=== PATIENT | female | born 1985 | race African-American/Black ===

== ENCOUNTER 2019-04-16 05:04 | Inpatient (IN) | payer OTHER ==
[~2019-04-16] VITALS: Ht 162.6 cm; Wt 72.3 kg
[2019-04-16] VITALS (9 sets, daily range): BP systolic 117–152; BP diastolic 74–105
[2019-04-16 06:23] LABS: HEMATOCRIT 38.7 % (36.0-47.0); HEMOGLOBIN 13.5 g/dl (12.0-15.5); MEAN CORPUSCULAR HEMOGLOBIN 34.1 pg (27.0-33.0); MEAN CORPUSCULAR HGB CONC 34.9 g/dl (32.0-36.5); MEAN CORPUSCULAR VOLUME 97.7 fl (80.0-96.0); PLATELET COUNT, AUTOMATED 182 10^3/uL (150-450); RED BLOOD COUNT 3.96 10^6/uL (4.00-5.40); WHITE BLOOD COUNT 9.7 10^3/uL (4.0-10.0)
[2019-04-16] MEDS ORDERED: OXYTOCIN 30 UNITS IN 0.9% NaCl 500ML IV BAG (J2590) As Ordered ONE (06:26)
[2019-04-16] MEDS ORDERED: LR 1,000 ML IV SCH ×2 (06:40→07:16)
[2019-04-16 06:51] LABS: CORD GAS ABE V -4.6; CORD GAS O2 SAT V 74.4 %; CORD GAS PCO2 V 40.9 mmHg; CORD GAS PH V 7.329 UNITS; CORD GAS PO2 V 34.9 mmHg; CORD GAS SBC V 20.2 MEQ/L; CORD GAS TCO2 V 22.3 MEQ/L
[2019-04-16] MEDS ORDERED: OXYTOCIN DRIP 30 UNITS in APPROPRIATE DILUENT 1 EA IV SCH (07:18)
[2019-04-16] MEDS ORDERED: LIDOCAINE 1% MDV 20ML VIAL INFIL ONE (07:30)
[2019-04-16] MEDS ORDERED: MEASLES,MUMPS,RUBELLA VACCINE INJ (MMR-II) (90707) SC SCH (07:30)
[2019-04-16] MEDS ORDERED: RHOGAM 300 MCG (1500 IU) INJ (J2790) IM SCH (07:30)
[2019-04-16] MEDS ORDERED: DIBUCAINE 1% OINTMENT 30GM TOP PRN (07:30)
--- NOTE | 2019-04-16 07:41 | HPEPDOC ---
Obstetrical History & Physical General Date of Admission Apr 16, 2019 at 05:41 History of Present Illness 32 y/o at 41+0 who came in earlier this AM with painful reg ctx's. RN check was 5 cm. She progressed rapidly and I was called from the OR to assist with delivery due to HR decels. See del note. Preg c/b known 4 cm fibroid. Chief Complaint: Contractions, term Information Provided By: Patient Care Care: Good Care Dating Final EDC by: LMP, 1st trimester ([place]) Past Medical History Past Obstetrical History : Type of Delivery: Spontaneous Vaginal Del. (2010 3000 gm, uncomplicated) LINE CLEANER History: No pertinent history Past Medical History Medical History denies Surgical History: Denies/None Family History Significant Family History: No pertinent family hx Social History Marital Status: Family situation: Spouse/partner home Psychosocial History: No pertinent psych hx * Smoker: non-smoker Alcohol: Denies Drugs: denies Abuse Violence Screening Have you been hit/kicked/slapp: No Have you been sexually assault: No Imunizations Tdap status: current Influenza Status: current Physical Examination Physical Examination GENERAL: Alert and oriented times three ABDOMEN: Gravid and non-tender to touch. FETUS: Is vertex (VTX) by sterile vaginal examination (SVE), C/C/BBOW/+1 station EXTREMITIES: No edema. Laboratory Data [facility] Laboratory Tests 2 04/16/19 05:45: Serology Scanned Report Hepatitis B Testing 04/16/19 06:07: Nucleated Red Blood Cells % (auto) 0.0 04/16/19 06:47: Cord Venous Blood pH 7.329, Cord Venous Blood PCO2 40.9, Cord Venous Blood PO2 34.9, Cord Venous Blood HCO3 21.0, Cord Venous Blood Total CO2 22.3, Cord Venous Base Excess (Actual) -4.6, Cord Venous Base Excess (Standard) 20.2, Cord Venous Blood Oxygen Saturation 74.4 CBC/BMP Laboratory Tests 04/16/19 06:07 Red Blood Count 3.96 L, Mean Corpuscular Volume 97.7 H, Mean Corpuscular Hemoglobin 34.1 H, Mean Corpuscular Hemoglobin Concent 34.9, Red Cell Distribution Width 12.6 Urine Culture: No Growth Pertinent Laboratoy Data Blood Type: O+ RBC Antibody Screen: Negative HIV: Negative Hepatitis B: Negative Hepatitis C: Unknown Rapid Plasma Reagin: Nonreactive Rubella: Immune Varicella: Nonreactive (nonimmune) Chlamydia/Gonorrhea: Negative Group B Streptococcus: Negative Quad Screen Test: Unknown Cystic Fibrosis: Negative Anatomy Ultrasound Placenta Location: Posterior Normal Anatomy: Yes Placenta Previa: No Assessment Variability: Moderate Accelerations: Positive Decelerations: Late, Variable, Recurrent (when I was called to room, see del note) Tocometer Contractions: Yes Frequency: regular Duration: greater than 60 seconds Strength: palpated as strong Assessment/Plan Assessment Active labor Plan Admit and orient. Java Tech Lead and consent. Diet: clears Group B Streptococcus (GBS) neg Labs and intravenous (IV) per unit protocol. Counseled on Pitocin and induction of labor (IOL). Lactated Ringers (LR): Bolus 1000 mL, then at 125 mL/hr. Anticipate normal spontaneous delivery () C-S as appropriate. Sessions MD CASEY,TRENT Fay MD Apr 16, 2019 07:41
--- NOTE | 2019-04-16 08:05 | DNPDOC ---
[facility] Delivery Note Delivery Note DATE OF DELIVERY: [id number] PREDELIVERY DIAGNOSIS: 41 0/7 weeks' gestation and labor. POST DELIVERY DIAGNOSIS: Delivered. PROCEDURE: Outlet vacuum vaginal delivery PAPER GOODS MACHINE OPERATOR: Dr. Putnam ANESTHESIA: natural ESTIMATED BLOOD LOSS: 300 mL. FINDINGS: 7 pound 8 ounce male infant, Score 9/9 DELIVERY SUMMARY: Several lates when I entered the room, C/C/+1/BBOW, AROM done with thin mec noted. Pushed very well but persistent bradycardia developed 80- 90's with pushing. Mod alec present. Pushed to +3-+4 and due to FHR I obtained verbal consent for an outlet vacuum. D/W pt risks of larger lac, hematoma/bruising to the vtx. Placed mid sagitally 1-2 cm from post fontanelle and 2 sets of pulls with 2 ctx's with excellent descent noted with each pull/push. Removed with complete , vtx del'd JUNIOR to LOT. 70 s shoulder dystocia (head out right ant shoulder not coming to shoulder/body out) then occurred that responded to Adonis, Suprapubic, ML Episiotomy in that order. Vigorous then del'd/placed on abdomen. Cord clamped X2 and cut by FOB. Cord blood, venous cord gas: pH 7.3, BE -4. Placenta intact, fundus firm with pit going 999. Stellate extension of the ML epis, equivalent of a second degr lac down to the anal verge but the rectal capsule was intact. 1% lidocaine bath throughout. 3-0 vicyrl used to repair the epis/lac in standard fashion, good cosmesis/hemostasis. Uncomplicated. Sessions TRENT COLLIER MD Apr 16, 2019 08:05
[2019-04-16] MEDS: PRENATAL VITAMINS CHEWABLE TABLET PO SCH (09:33)
[2019-04-16] MEDS: DOCUSATE SODIUM 100 MG CAP PO SCH ×2 (09:33→19:32)
[2019-04-16] MEDS: ACETAMINOPHEN TAB 650MG DOSE (2X325MG) PO PRN ×2 (09:34→18:28)
[2019-04-16] MEDS: IBUPROFEN 800 MG TAB PO PRN ×2 (11:38→22:04)
[2019-04-17 06:24] VITALS: BP 128/59
[2019-04-17] MEDS ORDERED: PRENCHW PO (06:43)
[2019-04-17] MEDS ORDERED: DIBU10OI TOP (06:43)
[2019-04-17] MEDS ORDERED: COLA100C5 PO (06:43)
[2019-04-17] MEDS ORDERED: IBUP80TA PO (06:43)
[2019-04-17] MEDS: DOCUSATE SODIUM 100 MG CAP PO SCH (09:43)
[2019-04-17] MEDS: PRENATAL VITAMINS CHEWABLE TABLET PO SCH (09:43)
--- NOTE | 2019-04-17 19:09 | DSES ---
DATE OF ADMISSION: 04/16/2019 DATE OF DISCHARGE: 04/17/2019 This lady is a 33-year-old 3, now para 2, admitted at 41 weeks in active labor. Precipitously became fully dilated, delivered by low vacuum, a live- male infant, 7 pounds 8 ounces, scores of 9 and 9 at one and five minutes, respectively. Arterial pH was 7.32, base excess -4.6. Admitting hemoglobin was 13.5, hematocrit 38.7, and platelets are 182. On discharge, we discussed phlebitis, cystitis, mastitis, metritis, cellulitis, diet, exercise, pain management, perineal, breast, and wound care. The patient's blood pressure on discharge 128/59, respirations 18, pulse 88, temperature 98.1. The rest examination unremarkable. Normocephalic, atraumatic. Neck: Full range of motion. Pupils equal and reactive to light. Distal pulses symmetric. No evidence of deep vein thrombosis (DVT), pulmonary embolism (PE), or superficial phlebitis. Chest is clear bilaterally to bases. No wheezes or rhonchi. No costovertebral angle (CVA) tenderness . Abdomen: Soft. Uterus 2 below. Four-quadrant bowel sounds are noted. Perineum is healing and dry. She did have a stellate tear, which was repaired in usual fashion. In summary, we have a late-term gestation, delivered a live- male . DISCHARGE: Followup in the office in 6 weeks' time. Medications were dispensed at delivery. All questions were answered. The patient is planning to delay circumcision of her male infant for 1 month.
== END 2019-04-17 10:50 | disposition home or self-care (01) | DRG 807 ==
LOC: M LDO 05:04 → M LDI 05:41 → M OBS 10:00
PROVIDERS: ADMIT Obstetrics & Gynecology; ATTEND Obstetrics & Gynecology
PROC: 10D07Z6 Extraction of Products of Conception, Vacuum, Via Natural or Artificial Opening (ICD-10-PCS; principal; 2019-04-16)
PROC: 0KQM0ZZ Repair Perineum Muscle, Open Approach (ICD-10-PCS; 2019-04-16)
PROC: 10907ZC Drainage of Amniotic Fluid, Therapeutic from Products of Conception, Via Natural or Artificial Opening (ICD-10-PCS; 2019-04-16)
PROC: 0W8NXZZ Division of Female Perineum, External Approach (ICD-10-PCS; 2019-04-16)
DX: O48.0 Post-term pregnancy (principal); Z37.0 Single live birth; O76 Abnormality in fetal heart rate and rhythm complicating labor and delivery; Z3A.41 41 weeks gestation of pregnancy; O66.0 Obstructed labor due to shoulder dystocia; O70.1 Second degree perineal laceration during delivery